=== PATIENT | male | born 1970 | race Asian ===

== ENCOUNTER 2017-02-09 12:31 | Emergency (ER) | payer OTHER ==
[~2017-02-09] VITALS: Ht 177.8 cm; Wt 108.4 kg
== END 2017-02-09 16:32 | disposition home or self-care (01) ==
LOC: EDBD 12:31 → ED 12:31
DX: M54.2 Cervicalgia (principal); M79.605 Pain in left leg; M79.672 Pain in left foot; M54.9 Dorsalgia, unspecified; W22.8XXA Striking against or struck by other objects, initial encounter
CPT/HCPCS: 99283